=== PATIENT | male | born 1945 | race Caucasian/White ===

== ENCOUNTER 2017-11-30 10:27 | Inpatient (IN) | payer MEDICARE, BC ==
--- NOTE | 2017-11-24 19:32 | HP ---
HISTORY AND PHYSICAL: DATE OF ADMISSION: 11/30/17 PROVIDER: Enedelia Eldridge MD * (DICTATED BY FRANKI HOOKS) PROCEDURE: Right total hip arthroplasty on 11/30/17. HISTORY OF PRESENT ILLNESS: Mr. Anderson is a 72-year-old gentleman, who reports over 5 months of severe right hip pain. Pain is an 8/10 in the groin. Difficulty walking half a block. Difficulty with stairs and rotation of the hip. He has failed antiinflammatories, physical therapy, and seen both a chiropractor and an exposure machine operator without relief. He has elected to undergo a right total hip arthroplasty on 11/30/17. PAST MEDICAL HISTORY: 1. Hypercholesterolemia. 2. Parkinson's disease. 3. Prostate cancer. PAST SURGICAL HISTORY: None. MEDICATIONS: 1. Carbidopa and levodopa 10/100. 2. Rasagiline 0.5 mg. 3. Zolpidem 5 mg. 4. Vitamin C 500 mg. 5. Calcium plus D 500-1000-40. 6. Fish Oil Extra Strength. 7. Milk thistle 175 mg. 8. Garlic 400 mg. 9. Glucosamine Chondroitin 1500 Complex. 10. Red yeast rice 600 mg. 11. Ginkgo biloba 30 mg. ALLERGIES: PENICILLIN, unknown reaction. FAMILY HISTORY: 1. Cancer. 2. Diabetes. SOCIAL HISTORY: The patient is a retired teacher. Lives with his . No tobacco or reactional drug use. Drinks one to two 12-ounce beers per week. Normally very active, right hand dominant. REVIEW OF SYSTEMS: General: The patient denies any fevers, chills, or night sweats. No known anesthesia problems. HEENT: The patient denies any headaches , lightheadedness, or syncopal episodes. Cardiothoracic: The patient denies any chest pain, heart palpitations, or edema. Pulmonary: The patient denies any shortness of breath with exertion, chronic cough, or COPD. GI: The patient denies any nausea, vomiting, diarrhea, or constipation. MSK: The patient admits to hip pain. Denies any chronic or intermittent back pain or fractures. Neuro: The patient denies any paresthesias or numbness. Integument: The patient denies any abrasions, lesions, rashes, lumps, or open sores. PHYSICAL EXAMINATION GENERAL: The patient is alert and oriented x3. Appropriate mood and affect. Appropriate dress and hygiene. No acute distress. HEENT: Normocephalic and atraumatic. Hearing and vision are grossly intact. PULMONARY: Lungs are clear to auscultation bilaterally with no wheezes, rales, or rhonchi. CARDIO: Regular rate and rhythm. Normal S1 and S2. No appreciable S3 or S4. No murmurs, rubs, or gallops. MUSCULOSKELETAL: Inspection of right lower extremity reveals no erythema, no ecchymosis. Skin is warm, dry, and intact. Range of motion is 85 degrees of flexion at the hip , 0 degrees of internal rotation, and 20 degrees of external rotation with pain. He is able to flex and abduct the hip, but causes groin pain. He is neurovascularly intact distally with a 2+ dorsalis pedis pulse. IMPRESSION: Right hip osteoarthritis, severe, end stage. PLAN: To the OR for a right total hip arthroplasty to be performed on . The patient will follow up in 10 to 14 days for suture removal and followup. The risks, benefits, and complications of surgery were reviewed with the patient by Dr. Eldridge. Informed consent was also obtained. FRANKI HOOKS [id number]/[facility] #: [id number] MTDD
[~2017-11-30 10:27] MED LIST: Buffered Lidocaine 0.9% SYRIN* 5 ML/SYR SYRINGE INTRADERM ONE
--- OUTSIDE RECORDS SUMMARY | 2017-11-30 10:33 | XMS REPORT ---
:1945 External Reference #:[id number] Author Organization [facility] Address [address] [place] [address] [place] [address] Phone [phone] Care Team Providers Name Role Phone Pete Gill PA-C Primary Care Physician Unavailable Payers Type Date Identification Numbers Payment Provider Subscriber Medicare Primary Policy Number: [id number] Medicare Jacky Anderson PayID: [id number] [address] [place] [address] Medigap Part B Policy Number: [id number] BS Facets Jacky Anderson PayID: [id number] [address] [address] [place] [address] Problems Date Description Provider Status Onset: 11/08/2017 Localized, primary osteoarthritis of the Enedelia Eldridge M.D. 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 hours as needed for pain Carbidopa-Lev / Active Tablets 10-100mg tab 1 by Unknown odopa 0000 mouth three times a day Rasagiline / Active Tablets 0.5mg 1 by mouth Unknown Mesylate 0000 every day Zolpidem / Active Tablets 5mg take 1 Unknown Tartrate 0000 tablet by mouth at bedtime as needed -- maximum daily dose of 1 per day Vitamin C / Active Capsules 500mg 1 by mouth Unknown 0000 every day Calcium + D / Active Chewtabs 500-1000-4 Unknown 0000 0mg-Unt-mc g Fish Oil / Active Capsules 1200mg Unknown Extra 0000 Strength Milk Thistle / Active Capsules 175mg Unknown 0000 Garlique / Active Tablets DR 400mg by mouth Unknown 0000 daily (otc) Glucosamine / Active Capsules 1500Com 1 by mouth Unknown Chondroitin 0000 twice a day 1500 Complex Red Yeast / Active Tablets 600mg twice a day Unknown Rice 0000 suggested 03/01/17 Ginkgo Biloba / Active Capsules 30mg 1 by mouth Unknown 0000 twice a day Tylenol / Active Unknown 0000 Vital Signs Date Vital Result Comment 11/17/2017 Height 65 inches 5'5" Weight 156.00 lb BP Systolic 132 mmHg BP Diastolic 82 mmHg Respiratory Rate 17 /min Body Temperature 96.2 F Pain Level 1 BMI (Body Mass Index) 26.0 kg/m2 11/08/2017 Height 65 inches 5'5" Weight 155.00 lb Heart Rate 70 /min BP Systolic 125 mmHg BP Diastolic 73 mmHg Body Temperature 97.2 F BMI (Body Mass Index) 25.8 kg/m2 Results Description No Information Procedures Description No Information Encounters Type Date Location Provider CPT E/M Dx Office Visit 11/08/2017 [facility] Enedelia Eldridge M.D. 25847 M25.551 10:[facility] M16.11 Plan of Care Future Appointment(s):12/10/2017 10:45 am - Enedelia Eldridge M.D. at [facility]11/30/2017 1:30 pm - SUSU Sam at [facility]11/30/2017 1:30 pm - FRANKI Will at [facility]11/30/2017 1:30 pm - Enedelia Eldridge M.D. at [facility]11/17/2017 - Enedelia Eldridge M.D.M25.551 Pain in right hipFollow up:Follow up: As [id number] Unilateral primary osteoarthritis, right hip
--- OUTSIDE RECORDS SUMMARY | 2017-11-30 10:33 | XMS REPORT ---
:1945 External Reference #:[id number] Author Organization [employer] Address [address] [place] [address] [place] [address] Phone [phone] Care Team Providers Name Role Phone Pete Gill PA-C Primary Care Physician Unavailable Payers Type Date Identification Numbers Payment Provider Subscriber Medicare Primary Policy Number: [id number] Medicare Jacky Anderson PayID: [id number] [address] [place] [address] Medigap Part B Policy Number: [id number] BS Facets Jacky Anderson PayID: [id number] [address] [address] [place] [address] Problems Date Description Provider Status Onset: 11/08/2017 [...] Visit 11/08/2017 [facility] Enedelia Eldridge M.D. 95919 M25.551 10:00a [facility] M16.11 Plan of Care Future Appointment(s):11/30/2017 1:30 pm - SUSU Sam at [facility]11/30/2017 1:30 pm - FRANKI Will at [facility]11/30/2017 1:30 pm - Enedelia Eldridge M.D. at [facility]11/17/2017 - Enedelia Eldridge M.D.M25.551 Pain in right hipFollow up:Follow up: As [id number] Unilateral primary osteoarthritis, right hip
[2017-11-30] MEDS ORDERED: Propofol* 10 MG/ML 20 ML BTL IV PUSH ONE (10:34)
[2017-11-30] MEDS ORDERED: Midazolam* 1 MG/ML 2 ML VIAL (2 MG) ONE ×2 (10:35→14:21)
[2017-11-30] MEDS ORDERED: KETAMINE HCL* 50 MG/ML 10 ML VIAL ONE (10:35)
--- OUTSIDE RECORDS SUMMARY | 2017-11-30 10:36 | XMS REPORT ---
:1945 External Reference #:[id number] Author Organization [facility] [employer] Address [address] [address] [place] [address] Phone [phone] Care Team Providers Name Role Phone Pete Gill PA-C Primary Care Physician Unavailable Payers Type Date Identification Numbers Payment Provider Subscriber Medicare Primary Policy Number: [id number] Medicare Jacky Odonnell PayID: [id number] [address] [place] [address] Medigap Part B Policy Number: [id number] BS Facets Jacky Odonnell PayID: [id number] [address] [address] [place] [address] Problems Date Description Provider Status Onset: 11/08/2017 [...] Ordering Provider Hydrocodone-A 11/08/ Active Tablets 5-325mg 90tabs 1 or 2 tabs M25.551 Enedelia cetaminophen [...] by mouth Unknown 0000 twice a day Vital Signs Date Vital Result Comment 11/08/2017 Height 65 inches 5'5" Weight 155.00 lb Heart Rate 70 /min BP Systolic 125 mmHg BP Diastolic 73 mmHg Body Temperature 97.2 F BMI (Body Mass Index) 25.8 kg/m2 Results Description No Information Procedures Description No Information Plan of Care Future Appointment(s):11/29/2017 1:30 pm - [facility] - Enedelia Eldridge M.D.M25.551 Pain in right hipNew Medication:Hydrocodone-Acetaminophen 5-325 mgNew Xrays:Hip Right 2 Views And Pelvis 54360 - 21043Gcryda up:Follow up: 7-10 days before [id number] Unilateral primary osteoarthritis, right hip
[2017-11-30] MEDS ORDERED: Clindamycin 900 MG IVPREMIX(* 900 MG/50 ML SDV IV ONE (10:39)
[2017-11-30] MEDS ORDERED: Bupivacaine-MPF SPINAL* 7.5 MG/ML - 2ML AMP ONE (10:44)
[2017-11-30] MEDS ORDERED: Lidocaine 2% PF * 5 ML VIAL ONE (10:45)
[2017-11-30] MEDS ORDERED: Sodium Chloride 0.9%* 20 ML ONE (12:31)
[2017-11-30] MEDS ORDERED: ROPIVACAINE 5 MG/ML 30 ML BTL (0.5%) ONE (12:31)
[2017-11-30] MEDS ORDERED: Sterile Water for Inj* 20 ML ONE (12:32)
[2017-11-30] MEDS ORDERED: Bupivacaine 0.5% PF 10 ML VIAL INJ ONE ×2 (12:32→12:48)
[2017-11-30] MEDS ORDERED: HYDROmorphone INJ* 0.5 MG/0.5 ML SYRINGE ONE (15:27)
--- NOTE | 2017-11-30 15:29 | RAD ---
INDICATION: RIGHT total hip replacement COMPARISON: November 08, 2017 TECHNIQUE: LEFT lateral decubitus crosstable AP RIGHT hip and pelvis. FINDINGS: Test fit femoral component/reamer device in place at the proximal RIGHT femur. Acetabular component in place. No fracture evident. IMPRESSION: Interoperative control films.
[2017-11-30] MEDS ORDERED: Naloxone* 0.4 MG/ML 1 ML VIAL IV PRN (15:34)
[2017-11-30] MEDS ORDERED: HYDROmorphone INJ* 0.5 MG/0.5 ML SYRINGE IV PRN (15:34)
[2017-11-30] MEDS ORDERED: Acetaminophen TAB* 325 MG PO PRN (15:34)
[2017-11-30] MEDS ORDERED: Ondansetron INJ* 2 MG/ML VIAL ONE (15:35)
[2017-11-30] MEDS ORDERED: Ketorolac INJ* 30 MG/ML 1 ML VIAL ONE (15:35)
[2017-11-30] MEDS ORDERED: Dexamethasone IV* 4 MG/ML 1 ML (4 MG) ONE (15:36)
[2017-11-30] MEDS ORDERED: diPHENhydraMINE IV* 50 MG/ML 1 ml VIAL (BENADRYL) IV PRN (15:49)
[2017-11-30] MEDS ORDERED: Ondansetron INJ* 2 MG/ML VIAL IV PRN (15:49)
[2017-11-30] MEDS ORDERED: Bisacodyl SUPP* 10 MG SUPP PR PRN (15:49)
[2017-11-30] MEDS ORDERED: Morphine VIAL* 4 MG/ML VIAL (1 ml vial) IV PRN (15:49)
[2017-11-30] MEDS ORDERED: Ondansetron TAB* 4 MG PO PRN (15:49)
[2017-11-30] MEDS ORDERED: oxyCODONE/Acetamin 5/325 MG* TAB PO PRN (15:49)
[2017-11-30] MEDS ORDERED: Magnesium Hydroxide LIQ* 30 ML UDC PO PRN (15:49)
[2017-11-30] MEDS ORDERED: oxyCODONE TAB* 5 MG TAB PO PRN (15:49)
[2017-11-30] MEDS ORDERED: Polyethylene Glycol 3350* 17 GM PACKET PO PRN (15:49)
[2017-11-30] MEDS ORDERED: Acetaminophen TAB* 325 MG PO SCH (16:00)
--- NOTE | 2017-11-30 16:36 | RAD ---
INDICATION: Status post total right hip replacement surgery. COMPARISON: Correlation is made with a prior study from November 08, 2017. TECHNIQUE: AP and lateral films of the right hip were obtained. FINDINGS: The patient is status post total right hip replacement surgery. The bones and prostheses are in normal alignment. There is a small amount of air within the adjacent soft tissues consistent with the patient's recent surgery. IMPRESSION: STATUS POST TOTAL RIGHT HIP REPLACEMENT SURGERY.
--- NOTE | 2017-11-30 16:38 | RAD ---
INDICATION: Status post total right hip replacement surgery. COMPARISON: Comparison is made with a prior study from November 08, 2017. TECHNIQUE: An AP view of the pelvis was obtained. FINDINGS: The patient is status post total right hip replacement surgery. The bones and prostheses are in normal alignment. There is a small amount of air in the adjacent soft tissues consistent with the patient's recent surgery. IMPRESSION: STATUS POST TOTAL RIGHT HIP REPLACEMENT SURGERY.
[2017-11-30] MEDS ORDERED: Warfarin TAB(*) 6 MG PO ONE (17:00)
[2017-11-30] MEDS: oxyCODONE/Acetamin 5/325 MG* TAB PO PRN (19:43)
[2017-11-30] MEDS: Docusate CAP* 100 MG PO SCH (23:23)
[2017-11-30] MEDS: Magnesium Hydroxide LIQ* 30 ML UDC PO SCH (23:23)
[2017-11-30] MEDS: Acetaminophen TAB* 325 MG PO SCH (23:24)
[2017-11-30] MEDS: Carbidopa/Levodop 10/100 MG TAB(*) PO SCH (23:25)
[2017-11-30] MEDS: Clindamycin 600 MG IVPREMIX(* 600 MG/50 ML SDV IV SCH (23:27)
[2017-12-01] MEDS: Zolpidem TAB* 10 MG PO PRN ×2 (02:59→21:38)
[2017-12-01] MEDS: Clindamycin 600 MG IVPREMIX(* 600 MG/50 ML SDV IV SCH ×2 (05:28→12:56)
[2017-12-01] MEDS: Acetaminophen TAB* 325 MG PO SCH ×3 (05:29→21:37)
[2017-12-01 06:49] LABS: Hematocrit 31 % (42-52); Hemoglobin 10.9 g/dl (14.0-18.0); Mean Platelet Volume 7.2 um3 (7.4-10.4); Platelet Count 210 10^3/ul (150-450)
[2017-12-01 06:55] LABS: INR 1.12 (0.77-1.02)
[2017-12-01 06:59] LABS: EGFR Non-African American 112.1 (>60)
[2017-12-01] MEDS: oxyCODONE/Acetamin 5/325 MG* TAB PO PRN ×2 (08:05→12:14)
[2017-12-01] MEDS ORDERED: RASAGILINE 1 MG PO SCH (09:00)
[2017-12-01] MEDS: Docusate CAP* 100 MG PO SCH ×2 (09:14→19:51)
[2017-12-01] MEDS: Magnesium Hydroxide LIQ* 30 ML UDC PO SCH ×2 (09:14→19:51)
[2017-12-01] MEDS: Carbidopa/Levodop 10/100 MG TAB(*) PO SCH ×2 (09:19→15:16)
--- NOTE | 2017-12-01 10:21 | PN ---
Progress Note - Progress Note Date of Service: 12/01/17 SOAP: Subjective: []Patient seen at bedside. He feels well with tolerable pain. Denies CP, SOB, dizziness. Asked to switch coumadin to aspirin, he has a history of prostate cancer march 2017. Patient also inquires about going home today, he has not yet met his goals with PT. Objective: []General: Well appearing, NAD RLE: Right hip dressing CDI. Thigh soft. DF/PF intact. DP2+. Sensation intact distally. BL calves without erythema, edema or palpable cords Assessment: []Right total hip arthroplasty POD 1 Dr Eldridge Plan: []WBAT PT/OT Coumadin, lovenox for DVT prophylaxis. Will not change to aspirin at this time due to cancer history x 2, most recent within the year, can discuss with Dr Eldridge. Braxton DC home tomorrow as patient has not yet met goals with PT Vital Signs Temp 97.8 F 12/01/17 07:25 Pulse 70 12/01/17 07:25 Resp 16 12/01/17 08:05 BP 134/69 12/01/17 07:25 Pulse Ox 98 12/01/17 08:00 Intake & Output 11/30/17 12/01/17 12/01/17 18:59 06:59 18:59 Intake Total 1999 1439 320 Output Total 800 1450 200 Balance 1200 -11 120 Weight 157 lb Intake: IV Fluids 1999 954 LR 1999 954 IVPB 55 ABX - CLINDAMYCIN 55 Oral 430 320 Output: Urine 0 200 Silva 500 1450 Estimated Blood Loss 300 Laboratory Last Values Hgb 10.9 g/dl (14.0-18.0) L 12/01/17 06:23 Hct 31 % (42-52) L 12/01/17 06:23 Plt Count 210 10^3/ul (150-450) 12/01/17 06:23 MPV 7.2 um3 (7.4-10.4) L 12/01/17 06:23 INR (Anticoag Therapy) 1.12 (0.77-1.02) H 12/01/17 06:23 Sodium 135 mmol/L (135-145) 12/01/17 06:23 Potassium 4.0 mmol/L (3.5-5.0) 12/01/17 06:23 Chloride 106 mmol/L (101-111) 12/01/17 06:23 Carbon Dioxide 25 mmol/L (22-32) 12/01/17 06:23 Anion Gap 4 mmol/L (2-11) 12/01/17 06:23 BUN 19 mg/dL (6-24) 12/01/17 06:23 Creatinine 0.69 mg/dL (0.67-1.17) 12/01/17 06:23 Est GFR ( Amer) 135.6 (>60) 12/01/17 06:23 Est GFR (Non-Af Amer) 112.1 (>60) 12/01/17 06:23 BUN/Creatinine Ratio 27.5 (8-20) H 12/01/17 06:23 Glucose 172 mg/dL (70-100) H 12/01/17 06:23 Calcium 9.0 mg/dL (8.6-10.3) 12/01/17 06:23
[2017-12-01] MEDS ORDERED: Enoxaparin(*) 30 MG/0.3 ML SYR SUBCUT SCH (12:00)
[2017-12-01] MEDS ORDERED: Warfarin TAB(*) 6 MG PO ONE (17:00)
--- NOTE | 2017-12-02 00:32 | OP ---
DATE OF OPERATION: 11/30/17 - ROOM #346 DATE OF : 41 ATTENDING SURGEON: Enedelia Eldridge MD ORAL COMMUNICATION INSTRUCTOR: FRANKI Moulton. Ms. Wise did help throughout the procedure with preparation of the leg, wound retraction, manipulation of the hip, and wound closure. ANESTHESIOLOGIST: Dr. Berman. ANESTHESIA: Spinal. PRE-OP DIAGNOSIS: Severe end-stage degenerative osteoarthritis of the right hip. POST-OP DIAGNOSIS: Severe end-stage degenerative osteoarthritis of the right hip. OPERATIVE PROCEDURE: Right total hip arthroplasty. COMPLICATIONS: None. ESTIMATED BLOOD LOSS: 300 cc. SPECIMEN: Femoral head and acetabular reaming sent to Pathology. HARDWARE USED: This is uncemented [employer]trust total hip arthroplasty hardware. For the cup, a Tritanium cluster hole shell 54E, a single 16-mm screw was used. For the liner, an MDM cementless liner 42E. For the stem, an Accolade TMZF size 3.5 with a 132-degree neck angle. For the head, a Biolox delta ceramic V40 femoral head 28 -2.7. For the insert, an MDM Druze X3 insert, 28/ 42E. BRIEF HISTORY/INDICATION: Mr. Anderson is a 72-year-old gentleman with years of increasingly severe right hip pain. Radiographs showed [id number] arthritis. He failed conservative treatment with antiinflammatories, pain medications, and physical therapy. Due to continued pain and decreased quality of life, he elected to undergo right total hip arthroplasty. Informed consent was obtained from the patient. He understood the risks of surgery included but were not limited to bleeding, infection, damage to nearby structures, continued pain, need for further surgery, intraoperative fracture, nerve palsy, hardware failure or loosening, dislocation, leg length discrepancy, stroke, heart attack , blood clot, and . He wished to proceed. INTRAOPERATIVE FINDINGS: Intraoperatively, the patient was noted to have osteopenia. He had severe end-stage arthritis with complete loss of cartilage in the acetabulum and femoral head and neck region. He had significant contracture and shortening of that hip, which was more than 1 cm. DESCRIPTION OF PROCEDURE: Mr. Anderson was identified in the preanesthesia unit. His right lower extremity was marked as the correct operative side. Informed consent was signed and placed in the chart. The patient was taken to the operating room and placed under spinal anesthesia. A Silva catheter was placed. The patient was placed in the left lateral decubitus position on a peg board. All bony prominences were well padded. The right lower extremity was prepped and draped in the usual sterile fashion. Preop time-out was made to correctly identify the patient's side and site. Appropriate perioperative antibiotics were given within 1 hour of incision. A standard posterior hip incision was made with a #10 blade and carried down to the lateral fascial layer. A new #10 blade was used to incise the lateral fascial layer in line with the skin incision. A Charnley retractor was placed. The piriformis and conjoint tendons were identified and elevated off the posterolateral femur using electrocautery. These were tagged with #5 Ethibond. Next, the electrocautery was used to make a standard posterolateral capsular flap and this was also tagged with #5 Ethibond. The hip was carefully dislocated. Lesser troch to center of the femoral head measured 56 mm. Oscillating saw was used to make the appropriate femoral neck cut. The femoral head was sent to Pathology. The femur was carefully retracted anteriorly. After appropriate placement of retractors, the acetabulum was well visualized. A long-handled knife was used to sharply remove any labrum from the acetabular rim. The acetabulum was sequentially reamed up to a size 53. 53 reamer had established a subchondral bleeding bone bed. 53 trial had good fit with appropriate anteversion. Final implant chosen was a Tritanium cluster hole shell 54E. This was impacted into the acetabulum without difficulty. The cut was stable with appropriate anteversion. One 16-mm screw was placed in the superior posterior quadrant for extra stability. An MDM cementless liner 42E was chosen as the liner. This was impacted into the acetabular cup. Stability of the liner was checked and rechecked and noted to be stable. Next, attention was turned to preparation of the femur. A canal finder was used to enter the femoral canal. The femoral canal was sequentially broached up to a size 3.5. 3.5 broach had excellent fit and appropriate anteversion. A 132 neck trial was chosen as well as a +0 head trial and the appropriate MDM insert trial. Lesser troch to center of the femoral head measured 57 mm. The hip was reduced and taken through a range of motion. The hip was stable in all positions. There was good soft tissue tension and appropriate leg length. The hip was carefully dislocated. All trials were removed. Final implant chosen was an Accolade TMZF size 3.5 with 132-degree neck angle. This was impacted into the femoral canal without difficulty. There was excellent stability and appropriate anteversion. This stem did sit up 3 mm higher than the broach had. The appropriate femoral head chosen at this point was Biolox ceramic delta V40 28 -2.7 femoral head. The MDM insert was 28/48/42E, Druze MDM X3 insert. These were impacted onto the femoral neck. Lesser troch to center of the femoral head measured 58 mm. The hip was reduced and taken through a range of motion. The hip was stable in all positions. There was good soft tissue tension and appropriate leg length. The hip was copiously irrigated with sterile saline. Previously tagged tendon and capsule were reapproximated to the posterolateral femur through 2 trochanteric drill holes. The lateral fascial layer was closed using interrupted #1 Vicryl. The rest of the incision was closed in a layered fashion using 0 and 2-0 Vicryl. Skin was closed using running 3-0 Monocryl suture and Dermabond. Sterile Adaptic, 4x4's, and paper tape were used to cover the incision. The patient's anesthesia was reversed without difficulty. He was taken to the PACU in stable condition. Intended weightbearing will be weightbearing as tolerated. Intended DVT prophylaxis will be Coumadin with a Lovenox bridge. [id number]/[facility] #: [id number] ANNA MARIE
[2017-12-02] MEDS: Acetaminophen TAB* 325 MG PO SCH (05:55)
[2017-12-02 06:11] LABS: Hematocrit 29 % (42-52); Hemoglobin 10.1 g/dl (14.0-18.0); Mean Platelet Volume 7.4 um3 (7.4-10.4); Platelet Count 196 10^3/ul (150-450)
[2017-12-02 06:16] LABS: INR 2.02 (0.77-1.02)
--- NOTE | 2017-12-02 07:20 | PN ---
Progress Note - Progress Note Date of Service: 12/02/17 SOAP: Subjective: resting comfortably with no complaints Objective: Vital Signs Temp Pulse Resp BP Pulse Ox 98.1 F 68 16 131/57 97 12/01/17 23:52 12/01/17 23:52 12/01/17 23:52 12/01/17 23:52 12/01/17 23:52 Laboratory Last Values Hgb 10.1 g/dl (14.0-18.0) L 12/02/17 05:26 Hct 29 % (42-52) L 12/02/17 05:26 Plt Count 196 10^3/ul (150-450) 12/02/17 05:26 MPV 7.4 um3 (7.4-10.4) 12/02/17 05:26 INR (Anticoag Therapy) 2.02 (0.77-1.02) H 12/02/17 05:26 Sodium 135 mmol/L (135-145) 12/01/17 06:23 Potassium 4.0 mmol/L (3.5-5.0) 12/01/17 06:23 Chloride 106 mmol/L (101-111) 12/01/17 06:23 Carbon Dioxide 25 mmol/L (22-32) 12/01/17 06:23 Anion Gap 4 mmol/L (2-11) 12/01/17 06:23 BUN 19 mg/dL (6-24) 12/01/17 06:23 Creatinine 0.69 mg/dL (0.67-1.17) 12/01/17 06:23 Est GFR ( Amer) 135.6 (>60) 12/01/17 06:23 Est GFR (Non-Af Amer) 112.1 (>60) 12/01/17 06:23 BUN/Creatinine Ratio 27.5 (8-20) H 12/01/17 06:23 Glucose 172 mg/dL (70-100) H 12/01/17 06:23 Calcium 9.0 mg/dL (8.6-10.3) 12/01/17 06:23 incision: c/d; dressing changed PE: NVI Assessment: s/p right KASSANDRA; POD#2 Plan: 1) PT/OT-WBAT 2) Coumadin/Lovenox for DVT prophylaxis; will go home with Xarelto QD x 4 weeks 3) Home today; follow-up with Chente in 2 weeks
[2017-12-02] MEDS: Magnesium Hydroxide LIQ* 30 ML UDC PO SCH (08:58)
[2017-12-02] MEDS: Docusate CAP* 100 MG PO SCH (09:00)
[2017-12-02] MEDS ORDERED: RASAGILINE 1 MG PO SCH (09:00)
[2017-12-02 11:54] VITALS: BP 102/42
[2017-12-02] MEDS: oxyCODONE/Acetamin 5/325 MG* TAB PO PRN (12:51)
--- NOTE | 2017-12-02 17:09 | DS ---
DISCHARGE SUMMARY: DATE OF ADMISSION: 11/30/17 DATE OF DISCHARGE: PROVIDER: Dr. Enedelia Eldridge.* (DICTATED BY FRANKI HAYNES) DIE MAINTENANCE TECHNICIAN: FRANKI Moulton PRE-OP DIAGNOSIS: Severe end-stage degenerative osteoarthritis of the right hip. OPERATIVE PROCEDURE: Right total hip aortoplasty. HISTORY: Mr. Anderson is a 72-year-old male with years of increasingly severe right hip pain. He failed conservative management and elected to undergo right total hip arthroplasty. HOSPITAL COURSE: The patient was admitted to [facility] on . He underwent a right total hip arthroplasty without complications. He recovered briefly in the PACU and then was transferred to the short-stay surgical unit. On postop day 1, he is well appearing and in no acute distress. Right lower extremity, right hip dressing was clean, dry, and intact. Thigh was soft. Dorsiflexion and plantarflexion intact. DP pulse 2+. Sensation intact distally. Bilateral calves without erythema, edema, or palpable cords. On postop day 2, the patient was again well appearing, in no acute distress. Dressing was changed. Incision was clean, dry, and intact. He was neurovascularly intact. Hemoglobin was 10.1, hematocrit 29, INR 2.02. Vitals: Temp 98.1, pulse 68, respiratory rate 16, blood pressure 131/57, pulse ox 97. The patient is deemed to be medically and orthopedically stable for discharge home. Due to he has decided to be on the medication other than Coumadin, he is being changed to Xarelto. He can start on his Xarelto today as he is not given Lovenox or Coumadin. DISCHARGE MEDICATIONS: 1. Continue Men's multivitamin. 2. CoQ10. 3. Turmeric 500 mg p.o. q.a.m. 4. Ginkgo biloba. 5. Red rice yeast. 6. Glucosamine/chondroitin. 7. Garlic. 8. [place]-3. 9. Milk thistle seed. 10. Calcium with D3. 11. Ascorbic acid. 12. Zolpidem 10 mg p.o. at bedtime. 13. Rasagiline mesylate 1 mg p.o. q.a.m. 14. Acetaminophen 650 mg p.o. b.i.d. p.r.n. 15. Trazodone 1 tab p.o. p.r.n. 16. Levodopa/carbidopa 25/100, take 0.5 tabs b.i.d. 17. Acetaminophen 975 mg p.o. q.8 hours p.r.n. 18. Docusate 100 mg p.o. b.i.d. 19. Percocet 5/375 one to two tabs every 4 to 6 hours as needed for pain, max daily dose of 10. 20. Xarelto 10 mg daily. DISCHARGE INSTRUCTIONS: The patient will be weightbearing as tolerated. He will continue with hip precautions. DVT prophylaxis will be with Xarelto 10 mg by mouth once daily for 30 days. Pain control with Percocet 5/325 one to two tabs every 4 to 6 hours as needed for pain, max of 10 per day. Follow up with Dr. Eldridge in 10 to 14 days. Call her office at [phone] for any concerns. FRANKI HAYNES [id number]/[facility] #: [id number] MTDD
== END 2017-12-02 13:00 | disposition home health service (06) | DRG 470 ==
LOC: AA 10:27 → SSU 17:03
PROVIDERS: ADMIT Orthopaedic Surgery Adult Reconstructive Orthopaedic Surgery; ATTEND Orthopaedic Surgery Adult Reconstructive Orthopaedic Surgery
PROC: 0SR903A Replacement of Right Hip Joint with Ceramic Synthetic Substitute, Uncemented, Open Approach (ICD-10-PCS; principal; 2017-11-30 13:00)
DX: M16.11 Unilateral primary osteoarthritis, right hip (principal); G20 Parkinson's disease; E78.2 Mixed hyperlipidemia; K21.9 Gastro-esophageal reflux disease without esophagitis; J30.1 Allergic rhinitis due to pollen; I10 Essential (primary) hypertension; D72.1 Eosinophilia; G47.00 Insomnia, unspecified; M85.88 Other specified disorders of bone density and structure, other site; M24.551 Contracture, right hip; M21.751 Unequal limb length (acquired), right femur; Z79.01 Long term (current) use of anticoagulants; Z85.46 Personal history of malignant neoplasm of prostate; Z88.0 Allergy status to penicillin; Z83.3 Family history of diabetes mellitus; Z82.49 Family history of ischemic heart disease and other diseases of the circulatory system; Z80.0 Family history of malignant neoplasm of digestive organs; Z80.42 Family history of malignant neoplasm of prostate; Z87.891 Personal history of nicotine dependence; Z72.89 Other problems related to lifestyle
CPT/HCPCS: 36415; 72170; 80048; 85014; 85018; 85049; 85610; 88304; 88311; A9270-GY; C1713; C1776; G8978-GP-CI; G8978-GP-CJ; G8979-GP-CI; G8980-GP-CI; G8987-GO-CJ; G8988-GO-CI; G8988-GO-CJ; J1100; J1170; J1650; J1885; J2250; J2405; J2704; J2795